=== PATIENT | male | born 1975 | race Hispanic/Latino ===

== ENCOUNTER 2021-10-28 09:21 | Emergency (ER) | payer BC ==
[2021-10-28] MEDS ORDERED: HYDROCODONE/APAP 10/325 TAB ONE (09:51)
[2021-10-28] MEDS ORDERED: LIDOCAINE 1% MPF 30 ML VIAL ONE (09:51)
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
[2021-10-28] MEDS ORDERED: DOXYCYCLINE 100 MG CAP PO ONE (11:04)
[2021-10-28 11:46] VITALS: O2SAT 100
[2021-10-28 11:48] VITALS: BP 127/66; TEMP 97.7
== END 2021-10-28 11:41 | disposition home or self-care (01) ==
LOC: ER 09:21
PROC: 0JQ80ZZ Repair Abdomen Subcutaneous Tissue and Fascia, Open Approach (ICD-10-PCS; principal; 2021-10-28)
PROC: 0JQL0ZZ Repair Right Upper Leg Subcutaneous Tissue and Fascia, Open Approach (ICD-10-PCS; 2021-10-28)
DX: S31.119A Laceration without foreign body of abdominal wall, unspecified quadrant without penetration into peritoneal cavity, initial encounter (principal); S71.011A Laceration without foreign body, right hip, initial encounter; W26.8XXA Contact with other sharp object(s), not elsewhere classified, initial encounter; Y93.89 Activity, other specified
CPT/HCPCS: 72192; 99283